=== PATIENT | male | born 1970 | race Caucasian/White ===

== ENCOUNTER 2021-04-30 10:24 | Emergency (ER) | payer OTHER, SELFPAY ==
--- NOTE | 2021-04-30 10:29 | ED.GENADULT ---
HPI - General Adult General Chief complaint: Ear Stated complaint: ear pain Time Seen by Provider: 04/30/21 10:29 Source: patient Mode of arrival: ambulatory Limitations: no limitations History of Present Illness HPI narrative: 50-year-old male patient presents to the [facility] with complaints of bilateral ear pain for the past 3 days. Patient states he has had a little bit of congestion. Patient states he gets this every once in a while. Patient states he has been taking Claritin. Patient is not vaccinated against Covid denies any fever, body aches or chills. Related Data Home Medications Medication Instructions Recorded Confirmed loratadine [Claritin] 10 mg PO DAILY 04/30/21 04/30/21 Allergies Allergy/AdvReac Type Severity Reaction Status Date / Time No Known Allergies Allergy Verified 04/30/21 10:31 Review of Systems Review of Systems: CONSTITUTIONAL: Denies fever, chills, or sweats. EYES: Denies visual changes, redness, or discharge. ENT: Denies rhinorrhea, positive congestion, denies sore throat, bilateral otalgia. CARDIOVASCULAR: Denies chest pain, palpitations, or edema. RESPIRATORY: Denies cough or dyspnea. GASTROINTESTINAL: Denies abdominal pain, nausea, vomiting, or diarrhea. GENITOURINARY: Denies dysuria or hematuria. SKIN: Denies rash or itching. MUSCULOSKELETAL: Denies back pain, joint pain, or myalgia. NEUROLOGIC: Denies headache, numbness, or weakness. PSYCHIATRIC: Denies anxiety or depression. [facility] Past Medical History Medical History (Updated 04/30/21 @ 10:51 by SHANNAN Pepper) Chronic ear infection Seasonal allergies Comments At the time of my signature I agree with nursing past medical history, surgical, social, and family history. There is no relevant family history pertinent to the presenting complaint. Exam Narrative: GENERAL: Well-appearing, well-nourished, and in no acute distress. HEAD: Normocephalic, atraumatic. EYES: PERRLA and EOMI. ENT: Nares clear, no rhinorrhea or epistaxis. Mucous membranes moist. Posterior pharynx with no erythema, tonsil enlargement, exudates or lesions present. There is fluid noted behind the left ear. There is some injection and erythema noted to the right ear. NECK: Supple. No lymphadenopathy CHEST: Clear to auscultation. No respiratory distress. HEART: Regular rate and rhythm. No murmur heard. Normal peripheral pulses. ABDOMEN: Soft, nontender, nondistended, normal active bowel sounds. EXTREMITIES: Normal range of motion. No edema. SKIN: Warm, dry, no rash. NEURO: No focal deficits. Alert and oriented x3. Course Vital Signs Vital signs: Vital Signs Temperature 36.6 C 04/30/21 10:33 Pulse Rate 81 04/30/21 10:33 Respiratory Rate 16 04/30/21 10:33 Blood Pressure 146/88 H 04/30/21 10:33 Pulse Oximetry 99 04/30/21 10:33 Temperature 36.6 C 04/30/21 10:33 Pulse Rate 81 04/30/21 10:33 Respiratory Rate 16 04/30/21 10:33 Blood Pressure 146/88 H 04/30/21 10:33 Pulse Oximetry 99 04/30/21 10:33 Vital signs reviewed The patient has been informed that they may have pre-hypertension or Hypertension based on a BP reading in the department. I recommend that the patient call the primary care provider listed on their discharge instructions or a physician of their choice this week to arrange follow up for further evaluation of possible pre-hypertension or Hypertension Medical Decision Making Differential Diagnosis Differential Diagnosis: Differential diagnosis: Otitis media, otitis externa, perforated TM, infection of the outer ear, foreign body or cerumen impaction, ruptured TM, acute mastoiditis, ligament otitis externa, dehydration, pneumonia, sepsis, dental or intraoral infection, TMJ dysfunction Discussed with patient it does appear that he has got a bilateral ear infection that we will go ahead and treat with antibiotics today. We will also discharge him home with a nasal steroid and can continue to take his ov
[2021-04-30 10:33] VITALS: BP 146/88; PULSE 81; RESP 16; TEMP 36.6; O2SAT 99
== END 2021-04-30 10:54 | disposition home or self-care (01) ==
PROVIDERS: Emergency Provider Nurse Practitioner Family; PCP Family Medicine
DX: H73.92 Unspecified disorder of tympanic membrane, left ear (principal); H66.91 Otitis media, unspecified, right ear
CPT/HCPCS: 99213; G0463

== ENCOUNTER 2023-07-05 10:32 | Outpatient (CLI) | payer OTHER, SELFPAY ==
--- NOTE | ~2023-07-05 | CT_ITS ---
EXAMINATION: CT pelvis w con DATE: 07/05/2023 11:06 INDICATION: Nonhealing surgical wound of right groin. TECHNIQUE: Computed tomography (CT) of the pelvis was performed with 100 mL Omnipaque 350 intravenous contrast. Automated exposure control and iterative reconstruction technique were employed. The dose- length product was 563.79 mGy-cm. COMPARISON: None FINDINGS: There are no dilated loops of bowel. There are no pathologically enlarged lymph nodes. Ther e is no free intraperitoneal fluid. There is a tract from the skin to the right inguinal canal. There is retraction of the skin in this area. No fluid collection. There is mild osteoarthritis of the hip s. IMPRESSION: 1. Tract from the skin to the right inguinal canal with retraction of the skin, likely scarring. Reviewed, dictated and finalized at location A. [facility]IST
== END 2023-07-05 10:33 ==
PROVIDERS: PCP Surgery; Visit Provider Surgery
DX: T81.89XA Other complications of procedures, not elsewhere classified, initial encounter (principal)
CPT/HCPCS: 72193; Q9967

== ENCOUNTER 2024-07-18 14:44 | Emergency (ER) | payer OTHER, SELFPAY ==
[2024-07-18 15:32] VITALS: BP 165/102; PULSE 90; RESP 17; TEMP 36.6; O2SAT 97
--- NOTE | 2024-07-18 15:40 | ED.MALEGU ---
HPI - Male Genitourinary General Chief complaint: Urogenital-Male Stated complaint: Swollen Penis Time Seen by Provider: 07/18/24 15:32 Source: patient and RN notes reviewed Mode of arrival: ambulatory Limitations: no limitations History of Present Illness HPI Narrative: Patient presents today with a one-week history of and redness, swelling, and itching at the tip of the penis. It has not been progressively worsening. No discharge. No concerns for sexually transmitted infections. He has tried some Neosporin and hydrocortisone without relief. Related Data Home Medications ?Medication ?Instructions ?Recorded ?Confirmed ?Last Taken ?Type No Home Medications 07/18/24 07/18/24 Unknown History Allergies Allergy/AdvReac Type Severity Reaction Status Date / Time No Known Allergies Allergy Verified 07/18/24 15:43 Review of Systems Review of Systems: CONSTITUTIONAL: Denies body aches, fever, chills, or sweats. EYES: Denies visual changes, redness, or discharge. ENT: Denies rhinorrhea, congestion, sore throat, or otalgia. CARDIOVASCULAR: Denies chest pain, palpitations, or edema. RESPIRATORY: Denies cough or dyspnea. GASTROINTESTINAL: Denies abdominal pain, nausea, vomiting, or diarrhea. GENITOURINARY: + redness, itching, swelling of penis SKIN: Denies rash, itching, or wounds. MUSCULOSKELETAL: Denies back pain, joint pain, or myalgia. NEUROLOGIC: Denies headache, numbness, tingling, or weakness. PSYCH: Denies depression or anxiety. [facility] Past Medical History Medical History Chronic ear infection Seasonal allergies Surgical History Surgical History History of hernia repair Right inguinal hernia repair History of tonsillectomy Family History Family History Father Melanoma Other Diabetes mellitus Hypertension Social History Social History Smoking status: Former smoker Tobacco type: cigarettes Smokeless tobacco user: chewing tobacco Alcohol intake: never Occupation/Education: occupation Additional occupation/education comments: refinery worker Comments At time of signature, I have reviewed and agree with nursing past medical, surgical, social and family history unless otherwise noted. Please see nursing chart for further information. There is no relevant family history pertinent to the presenting complaint Exam Narrative: GENERAL: Well-appearing, well-nourished, and in no acute distress. HEAD: Normocephalic, atraumatic. EYES: EOMI. No redness or drainage. Conjunctivae normal. ENT: Mucous membranes pink and moist. NECK: Normal AROM. CHEST: No respiratory distress. :Uncircumcised male. Erythema and irritation to area just proximal to the head of the penis. EXTREMITIES: Normal range of motion. No edema. SKIN: Warm, dry, no rash. Capillary refill normal. Normal skin turgor. NEURO: No focal deficits. Alert and oriented x3. Gait steady. PSYCH: Normal affect. No signs of depression or anxiety. Course Course Level of Care: Express Care Visit Vital Signs Vital signs: Vital Signs Temperature 97.9 F 07/18/24 15:32 Pulse Rate 90 07/18/24 15:32 Respiratory Rate 17 07/18/24 15:32 Blood Pressure 165/102 H 07/18/24 15:32 Pulse Oximetry 97 07/18/24 15:32 Temperature 97.9 F 07/18/24 15:32 Pulse Rate 90 07/18/24 15:32 Respiratory Rate 17 07/18/24 15:32 Blood Pressure 165/102 H 07/18/24 15:32 Pulse Oximetry 97 07/18/24 15:32 Reviewed MDM - Male Genitourinary MDM Narrative Medical decision making narrative: Patient has some irritation just below the head of the penis that is consistent with mild balanitis. Will treat with topical clotrimazole. Recommend PCP follow-up in 1-2 weeks if symptoms persist. Anticipatory guidance given. Differential Diagnosis Differential diagnosis: Likely other (Tinea, balanitis, phimosis, paraphimosis) Critical Care Time Critical Care Time Critical Care Time: No Discharge Plan Discharge Clinical Impression: Balanitis Patient Disposition: Home, Self-Care Condition: Stable Instructions: Balanitis (ED) Additional Instructions: Please use some [id number] clotrimazole cream (Lotrimin) in the reddened area twice a day for 1-2 weeks. If after 1 week you do not feel symptoms are improving, please follow-up with your PCP. If symptoms worsen, please follow-up sooner. Your blood pressure was elevated above 120/80 today at Urgent Care. This puts you above the threshold for follow up. Please schedule a followup visit with your personal physician as soon as possible, for further evaluation and treatment. Even blood pressure exceeding 120/80 may indicate pre-hypertension. Patient Language: Divehi Prescriptions: No Action loratadine [Claritin] 10 mg Tablet 10 mg PO DAILY fluticasone propionate [Flonase Allergy Relief] 50 mcg/actuation spray,suspension 2 spray NASAL BID Qty: 15.8 0RF Rx Instructions: administer into each nostril Follow-up/Referrals: UNKNOWN,DOCTOR [Primary Care Provider] - Time of Disposition: 15:48
== END 2024-07-18 15:52 | disposition home or self-care (01) ==
PROVIDERS: Emergency Provider Nurse Practitioner
DX: N48.1 Balanitis (principal); F17.220 Nicotine dependence, chewing tobacco, uncomplicated
CPT/HCPCS: 99211; G0463

== ENCOUNTER 2025-02-02 17:06 | Emergency (ER) | payer OTHER, SELFPAY ==
[2025-02-02 17:14] VITALS: BP 142/89; PULSE 77; RESP 16; TEMP 36.6; O2SAT 98
--- NOTE | 2025-02-02 17:22 | ED_ITS ---
HPI - Male Genitourinary General Chief complaint: Urogenital-Male Stated complaint: Scrotum issue Time Seen by Provider: 02/02/25 17:40 Source: patient and RN notes reviewed Mode of arrival: ambulatory Limitations: no limitations History of Present Illness HPI Narrative: 54-year-old male presents with concern for rash to his penis. Reports he was seen 6 months ago here and diagnosed with balanitis and was told use Lotrimin cream. Reports that made it worse. Patient is circumcised. He denies any concern for STDs. He denies any dysuria, frequency, urgency. Reports skin is becoming brought any now has 2 bumps on the head of his penis. He reports the area has not spread otherwise. MD Complaint: other (skin irritation) Related Data Allergies Allergy/AdvReac Type Severity Reaction Status Date / Time No Known Allergies Allergy Verified 02/02/25 17:20 Review of Systems Review of Systems: CONSTITUTIONAL: Denies malaise, chills, sweats, or fever. EYES: Denies redness, or discharge. ENT: Denies rhinorrhea, congestion, swollen lips, swollen tongue CARDIOVASCULAR: Denies chest pain, palpitations, or edema. RESPIRATORY: Denies cough or dyspnea. GASTROINTESTINAL: Denies abdominal pain, nausea, vomiting SKIN: Reports irritated skin on the shaft of his penis MUSCULOSKELETAL: Denies joint pain or myalgia. NEUROLOGIC: Denies headache. All systems reviewed & are unremarkable except as noted in HPI and below PMFSH Past Medical History Medical History Chronic ear infection Seasonal allergies Surgical History Surgical History History of hernia repair Right inguinal hernia repair History of tonsillectomy Family History Family History Father Melanoma Other Diabetes mellitus Hypertension Social History Social History Smoking status: Former smoker Tobacco type: cigarettes Smokeless tobacco user: chewing tobacco Alcohol intake: never Occupation/Education: occupation Additional occupation/education comments: [email or web address] worker Comments At time of signature, agree with nursing past medical, surgical, social and family history. There is no relevant family history pertinent to the presenting complaint Exam Narrative: GENERAL: Well-appearing, well-nourished, and in no acute distress. HEAD: Normocephalic, atraumatic. EYES: PERRLA, conjunctivae clear, and EOMI. ENT: Mucous membranes moist. Oropharynx without edema, erythema or lesions. NECK: Supple. No lymphadenopathy CHEST: Clear to auscultation. No respiratory distress. HEART: Regular rate and rhythm. SKIN: Warm, dry. Erythematous and slightly excoriated skin noted to the coronal sulcus circumferentially, two skin colored papules noted to the head of the penis NEURO: Alert and oriented x3. PSYCH: Normal mood and affect Course Course Emergency Course: Patient is aware of diagnosis, understands and agrees to treatment plan. Anticipatory guidance given. Patient agrees to follow-up as directed and is aware of reasons to seek care at the emergency department. Portions of this record may have been created with voice recognition software Level of Care: Express Care Visit Vital Signs Vital signs: Vital Signs Temperature 97.9 F 02/02/25 17:14 Pulse Rate 77 02/02/25 17:14 Respiratory Rate 16 02/02/25 17:14 Blood Pressure 142/89 H 02/02/25 17:14 Pulse Oximetry 98 02/02/25 17:14 Temperature 97.9 F 02/02/25 17:14 Pulse Rate 77 02/02/25 17:14 Respiratory Rate 16 02/02/25 17:14 Blood Pressure 142/89 H 02/02/25 17:14 Pulse Oximetry 98 02/02/25 17:14 Reviewed. MDM - Male Genitourinary MDM Narrative Medical decision making narrative: Contact dermatitis, allergic dermatitis, simple balanitis, benign papules, psoriasis Critical Care Time Critical Care Time Critical Care Time: No Discharge Plan Discharge Clinical Impression: Dermatitis Patient Disposition: Home Condition: Stable Instructions: Dermatitis (ED) Additional Instructions: Wash the area with gentle soap and water only. Avoid any irritating bath or skin care products Use skin cream as prescribed Avoid scratching when possible to prevent worsening of the condition and disruption of the skin that could lead to bacterial infection To relieve itching, place a cool washcloth or some ice over the area that itches, rather than scratching Follow up with primary care provider if her symptoms do not improve in 7 days. Patient Language: Citizen [place] Prescriptions: New triamcinolone acetonide 0.05 % ointment 1 applic topical BID 7 Days Qty: 15 0RF Follow-up/Referrals: UNKNOWN,DOCTOR [Primary Care Provider] - Time of Disposition: 17:54
== END 2025-02-02 17:56 | disposition home or self-care (01) ==
PROVIDERS: Emergency Provider Nurse Practitioner
DX: N48.89 Other specified disorders of penis (principal); L30.9 Dermatitis, unspecified; F17.220 Nicotine dependence, chewing tobacco, uncomplicated
CPT/HCPCS: 99213; G0463

== ENCOUNTER 2025-06-30 08:06 | Outpatient (CLI) | payer OTHER, SELFPAY ==
--- NOTE | ~2025-06-30 | XR_ITS ---
XR chest 2V 06/30/2025 08:32 Indication: Dyspnea Procedure: 2 view chest Comparison: No prior studies for comparison. Findings: There is left lower lobe airspace disease which may represent atelectasis or developing pneumonia. Heart size normal. Right lung clear. No pleural effusion or pneumothorax. Impression: 1: Left lower lobe airspace disease may represent atelectasis or developing pneumonia. Reviewed, dictated and finalized at location C. GENCY MEDICINE SPECIALIST Impression: 1: Left lower lobe airspace disease may represent atelectasis or developing pne umonia.
--- NOTE | ~2025-06-30 | XR_ITS ---
LEFT XR nasal bones min 3V Indication: R09.81 - Nasal congestion Comparison: None Technique: 3 view. Findings: No acute fracture or malalignment. No significant degenerative changes. Soft tissues are unremarkable. Impression: No acute fracture or malalignment. Reviewed, dictated and finalized at location P. PENS ASSEMBLER Impression: No acute fracture or malalignment.
--- OUTSIDE RECORDS SUMMARY | 2025-06-30 08:10 | XMS_ITS | Clinical Summary ---
Author Organization [facility] Healthcare Address [address] [place] [address] Care Team Providers Care Cooling Tower Technician Name Role Phone No, Physician Unavailable Jessica Callahan NP Primary Care Provider [phone] Allergies No known active allergies Medications fluticasone (FLONASE) 50 mcg/actuation nasal spray Administer 2 sprays into each nostril daily. 16 g 5 8 Active loratadine (CLARITIN) 10 mg tablet Take 1 tablet (10 mg total) by mouth daily Active Active Problems Problem Noted Date Diagnosed Date Acute right flank pain 12/22/2020 Acute recurrent maxillary sinusitis 11/19/2017 Assessment & Plan (11/19/2017 4:34 PM CDT): Complete antibiotics and other meds as prescribed Take OTC decongestants for congestion- Sudafed/Mucinex Motrin/Tylenol for pain/fever If you have high blood pressure or any kidney disease use Tylenol only. Take an Antihistamines like Zyrtec or Claritin or Galilea daily at bedtime for the next 2-3 weeks. Can take Benadryl at bedtime for the next 3-4 days for immediate relief of runny nose and may help with sinus headache. Try saline nasal spray irrigations 2-4 times a day or try using Annette pot as directed daily then use your Flonase or other corticosteroid nasal spray every day to decrease the swelling and inflammation in your nasal cavities. Drink plenty of water & get plenty of rest A humidifier may also help with congestion Follow up with your PCP in 3-5 days if you are not getting better Acute suppurative otitis med ia of both ears without spontaneous rupture of tympanic membranes 11/19/2017 Assessment & Plan (11/19/2017 4:33 PM CDT): You can take Tylenol/Motrin for pain/fever Complete antibiotics as directed If you were prescribed ear drops- they contain a steroid & will help reduce redness, swelling, pain in the ear You can use warm moist heat to decrease pain Follow up w PCP if you are not getting better in 3 days For children, you may want to have the ear rechecked after 10 days. Immunizations Immunization Administration Dates Next Due Influenza, Unspecified 06/26/2023(Deferr ed: Patient Refused),05/15/2023(Deferred: Patient Refused) Surgical History Surgery Date Site/Laterality Comments INGUINAL HERNIA REPAIR TONSILLECTOMY WISDOM TOOTH EXTRACTION Social History Tobacco Use Types Packs/Day Years Used Date Smoking Tobacco: Never Smokeless Tobacco: Former Chew Quit: 2019 Tobacco Cessation:Counseling Given: Not Answered PHQ-2 Answer Date Recorded PHQ-2 Total Score (If total score is 3 or more points, staff should administer the PHQ-9) 0 05/08/2024 Sex and Gender Information Value Date Recorded Sex Assigned at Not on file 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 Gender Identity Not on file Sexual Orientation Not on file Last Filed Vital Signs Vital Sign Reading Time Taken Comments Blood Pressure 112/78 05/08/2024 1:38 PM CDT Pulse 83 05/08/2024 1:38 PM CDT Temperature 36.1 C (96.9 F) 05/08/2024 1:38 PM CDT Respiratory Rate 22 03/23/2023 5:29 PM CDT Oxygen Saturation 96% 05/08/2024 1:38 PM CDT Inhaled Oxygen Concentration - - Weight 97.9 kg (215 lb 14.4 oz) 05/08/2024 1:38 PM CDT Height 175.3 cm (5' 9) 05/08/2024 1:38 PM CDT Body Mass Index 31.88 05/08/2024 1:38 PM CDT Plan of Treatment Health Maintenance Due Date Last Done Comments Colon Cancer Screening-Colonoscopy 1970 DTaP/Tdap/Td Vaccine (1 - Tdap) 1981 Zoster Vaccine (1 of 2) 2020 Influenza Vaccine (#1) 2025 Depression Screening 05/08/2025 05/08/2024, 11/19/2017, 11/19/2017 Regular Well Visit/Exam 18-64 05/08/2025 05/08/2024 Prostate Cancer Screening-PSA 05/09/2026 05/09/2024 Hepatitis B Screening Completed 05/09/2024 Hepatitis C Screening Completed 05/09/2024 Pneumococcal vaccine <65 Aged Out No longer eligible based on patient's age to complete this topic Procedures Procedure Name Priority Date/Time Associated Diagnosis Comments HEPATITIS C ANTIBODY Routine 05/09/2024 8:37 AM CDT Encounter for hepatitis C screening test for low risk patient PSA SCREEN Routine 05/09/2024 8:37 AM CDT Screening PSA (prostate specific antigen) from Last 3 Months or Most Recently Relevant to Health Maintenance Results * PSA screen (05/09/2024 8:37 AM CDT) PSA-Total 0.49 <=3.90 ng/mL Comment: Interpretive Data AGE SEX REFERENCE INTERVAL 0 minutes-150 years Female None 0 minutes-49 years Male None 50-59 years Male 0-3.90 60-69 years Male 0-5.40 70-79 years Male 0-6.20 80-150 years Male 0-6.20 The [employer] PSA Total assay procedure was used. Results from different manufacturers or methods may not be comparable. Serial testing should be performed using the same method. Current interpretive data last revised 21. Blood 05/09/2024 8:37 AM CDT 05/09/2024 8:57 AM CDT us Jessica Callahan NP LAB BLOOD ORDERABLES Felipa manuel Result [facility] [place] [facility] [place] [address] * Hepatitis C antibody Blood (05/09/2024 8:37 AM CDT) Hep C Ab Nonreactive Nonreactive Comment: Interpretive Data Nonreactive: Antibodies to HCV not detected. Does NOT exclude the possibility of recent exposure to HCV. Equivocal: Equivocal for HCV antibodies. Supplemental molecular testing will be automatically performed to determine infection status in accordance with current CDC screening recommendations. Reactive: Positive for HCV antibodies. This may represent current or past HCV infection. Supplemental molecular testing will be automatically performed to determine current infection status in accordance with current CDC screening recommendations. Interpretive data was last revised on 2019. Testing performed by: [facility], [address] [place] [address]., [id number] Blood 05/09/2024 8:37 AM CDT 05/09/2024 1:26 PM CDT Jessica Callahan NP LAB MICROBIOLOGY - GENERA L ORDERABLES Final Result Performing Organization Address City/State/[facility] Co de Phone Number [facility] ([place]) [facility] [place] [address] from Last 3 Months or Most Recently Relevant to Health Maintenance Insurance [employer] ACCESS [employer] OPEN ACCESS Care Teams Cooling Tower Technician Relationship Specialty Start Date End Date Jessica Callahan NP PCP - General Infectious Diseases 05/12/24 No, Physician 08/13/18
--- OUTSIDE RECORDS SUMMARY | 2025-06-30 08:10 | XMS_ITS | Data Portability ---
Author Organization [place] - [facility] [email or web address], Main Office Address [address] [place] [address] Assessment No assessment recorded. Plan of Treatment Reminders Order Date Submit Date Provider Last Modified By Organization Details Last Modified Time Details Appointments None recorded. Lab testosteron e, total, serum 2022 023 [employer] [facility], [address], [place], [address], 3 02:42:08 CMP, serum or plasma 2022 023 [employer] [facility], [address], [place], [address], 3 02:42:07 lipid panel, serum 2022 023 [employer] [facility], [address], [place], [address], 3 02:42:05 PSA, serum or plasma 2022 023 [employer] [facility], [address], [place], [address], 3 02:42:09 culture, wound 2022 023 [facility] ([facility]), [address] [place], [address], 3 14:53:16 Referral general surgeon referral 2022 023 RADHA Neff MD, [address] [facility] [address],, [place], [address], 3 13:01:16 Procedures None recorded. Surgeries None recorded. Imaging home sleep study 2022 023 [email or web address] 256 [facility], [address] [facility], [place], [address], 3 09:16:22 home sleep study - *Please call pt to schedule* 2022 023 [email or web address] [facility] ([facility]), [address], [place], [address], 3 11:37:31 Medication Orders sildenafil 100 mg tablet 2022 023 [facility] [address], [address], [place], [address], 3 17:26:10 omeprazole 40 mg capsule,del ayed release 2022 023 [facility], [address], [place], [id number], 3 14:51:51 sildenafil 100 mg tablet 2022 023 [id number], [address], [place], [phone], 3 14:51:51 Patient TargetsNo targets recorded. Patient InstructionsNo instructions recorded. Reason for Referral General Surgeon Referral for Open wound Referring Physician: Radha Mcneill, Family Medicine, Encounter Date: 06/13/2023 Results Created Date Observation Date Name Description Value Unit Range Abnormal Flag Note LastModifiedBy Organization Detail LastModifiedTime 04/18/20 23 04/18/2023 CULTU RE WOUND /TISS UE+GR .STAI N [email or web address] ===== ===== ===== ===== ===== ===== ===== ===== ===== ===== ===== ===== ===== ===== ===== ===== ===== ===== ===== ===== ===== ===== ===== ===== CULTU RE NO.: [id number] Exam Statu s: Final Exam Type: CULTU RE WOUND /TISS UE+ ===== ===== ===== ===== ===== ===== ===== ===== ===== ===== ===== ===== ===== ===== ===== ===== ===== ===== ===== ===== ===== ===== ===== ===== Cultu re Repor t: Organ ism #01 Staph yloco ccus aureu s (staa ur) Antib iotic s staau r Achie vable Achie vable (01) Dosag e Serum Level Urine Level mcg/m l mcg/m l Beta- Lacta ellen POS + 021A Cefox itin Scree n NEG - 021A Cipro floxa jessie <=0.5 S 021A Clind amyci n <=0.1 2 S 021A Dapto mycin 0.25 S 021A Doxyc yclin e <=0.5 S 021A Eryth romyc in <=0.2 5 S 021A Genta micin <=0.5 S 021A Induc ible Clind amyci NEG - 021A Levof loxac in <=0.1 2 S 021A Linez olid 2 S 021A Oxaci llin <=0.2 5 S 021A Rifam pin <=0.5 S 021A Tetra cycli ne <=1 S 021A Trmet hopri m.Sul fa <=10 S 021A Vanco mycin 1 S 021A rt - Test Card Code AST-G P 021A o2 - Final Organ ism STAPH Y 021A af - Antib iotic Fami MACRO L 021A af - Antib iotic Famil y Na ap - Pheno type Name RESIS T 021A ap - Pheno type Name Not Available [facility] (Lab) [address] [place], [address], 04/21/2023 07:39:18 04/25/2004/26/2023 LIPID PANEL , STAND CHRISTEN cholesterol, total 238 mg/dL <200 high Not Available [facility] [address] [address] [place], [address], 04/26/2023 02:42:05 04/25/20 23 04/26/2023 LIPID PANEL , STAND CHRISTEN HDL cholesterol 32 mg/dL > or = 40 low Not Available [facility] [address] [place], [address], 04/26/2023 02:42:05 04/25/20 23 04/26/2023 LIPID PANEL , STAND CHRISTEN triglyceride s 420 mg/dL <150 high If a non-f astin g speci men was colle cted, consi ximena repea t trigl yceri de testi ng on a fasti ng speci men if clini vasu indic ated. Erich east et al. J. of Clin. Lipid ol. 2015; 9:129 -169. Not Available [facility] [address] [place], [address], 04/26/2023 02:42:05 04/25/20 23 04/26/2023 LIPID PANEL , STAND CHRISTEN LDL-choleste rol mg/dL _(joanne c) LDL rubio stero l not calcu lated . Trigl yceri de level s great er than 400 mg/dL inval idate calcu lated LDL resul ts. Refer ence range : <100 Norm able range <100 mg/dL for prima ry preve ntion ; <70 mg/dL for patie nts with CHD or diabe tic patie nts with > or = 2 CHD risk facto rs. LDL-C is now calcu lated using the Olesya n-Hop kins calcu vicente n, which is a valid ated novel kev thorpe than the Fried semaj equat ion in the estim ation of LDL-C . Olesya monroe SS et al. BOSTON. 2013; 310(1 9): 2061- 2068 (http ://ed ucati on.Qu estAdorStyle. com/f aq/FA Q164) Not Available [address] [address] [place], [address], 04/26/2023 02:42:05 04/25/2004/26/2023 LIPID PANEL , STAND CHRISTEN chol/HDLC ratio 7.4 (calc ) <5.0 high Not Available [address] [address] [place], [address], 04/26/2023 02:42:05 04/25/20 23 04/26/2023 LIPID PANEL , STAND CHRISTEN non HDL cholesterol 206 mg/dL _(joanne c) <130 high For patie nts with diabe adalberto plus 1 major ASCVD risk facto r, treat ing to a non-H DL-C goal of <100 mg/dL (LDL- C of <70 mg/dL ) is consi flip richardson optio n. Not Available [address] [address] [place], [address], 04/26/2023 02:42:05 04/25/20 23 04/26/2023 COMPR EHENS ANAI METAB OLIC PANEL glucose 97 mg/dL 65-99 normal Fasti ng refer ence inter joelle Not Available [facility] [address] [address] [place], [address], 04/26/2023 02:42:07 04/25/2004/26/2023 COMPR EHENS ANAI METAB OLIC PANEL urea nitrogen (BUN) 17 mg/dL 7-25 normal Not Available [facility] [address] [address] [place], [address], 04/26/2023 02:42:07 04/25/20 23 04/26/2023 COMPR EHENS ANAI METAB OLIC PANEL creatinine 1.05 mg/dL 0.70-1 .30 normal Not Available [address], [address], 04/26/2023 02:42:07 04/25/20 23 04/26/2023 COMPR EHENS ANAI METAB OLIC PANEL eGFR 85 mL/mi n/1.7 3m2 > or = 60 normal Not Available [address], [address], 04/26/2023 02:42:07 04/25/20 23 04/26/2023 COMPR EHENS ANAI METAB OLIC PANEL BUN/creatini ne ratio SEE NOTE: (calc ) 6-22 Not Repor arcadio: BUN and Creat inine are withi n refer ence range . Not Available [address], [address], 04/26/2023 02:42:07 04/25/20 23 04/26/2023 COMPR EHENS ANAI METAB OLIC PANEL sodium 138 mmol/ L 135-14 6 normal Not Available [address], [address], 04/26/2023 02:42:07 04/25/20 23 04/26/2023 COMPR EHENS ANAI METAB OLIC PANEL potassium 4.3 mmol/ L 3.5-5. 3 normal Not Available [address], [address], 04/26/2023 02:42:07 04/25/20 23 04/26/2023 COMPR EHENS ANAI METAB OLIC PANEL chloride 101 mmol/ L 98-110 normal Not Available [address], [address], 04/26/2023 02:42:07 04/25/20 23 04/26/2023 COMPR EHENS ANAI METAB OLIC PANEL carbon dioxide 31 mmol/ L 20-32 normal Not Available [address], [address], 04/26/2023 02:42:07 04/25/20 23 04/26/2023 COMPR EHENS ANAI METAB OLIC PANEL calcium 9.2 mg/dL 8.6-10 .3 normal Not Available [address], [address], 04/26/2023 02:42:07 04/25/20 23 04/26/2023 COMPR EHENS ANAI METAB OLIC PANEL protein, total 7.4 g/dL 6.1-8. 1 normal Not Available [address], [address], 04/26/2023 02:42:07 04/25/20 23 04/26/2023 COMPR EHENS ANAI METAB OLIC PANEL albumin 4.2 g/dL 3.6-5. 1 normal Not Available [address], [address], 04/26/2023 02:42:07 04/25/20 23 04/26/2023 COMPR EHENS ANAI METAB OLIC PANEL globulin 3.2 g/dL_ (calc ) 1.9-3. 7 normal Not Available [address], [address], 04/26/2023 02:42:07 04/25/20 23 04/26/2023 COMPR EHENS ANAI METAB OLIC PANEL albumin/glob ulin ratio 1.3 (calc ) 1.0-2. 5 normal Not Available [address], [address], 04/26/2023 02:42:07 04/25/20 23 04/26/2023 COMPR EHENS ANAI METAB OLIC PANEL bilirubin, total 0.5 mg/dL 0.2-1. 2 normal Not Available [address] [address] [place], [address], 04/26/2023 02:42:07 04/25/20 23 04/26/2023 COMPR EHENS ANAI METAB OLIC PANEL alkaline phosphatase 86 U/L 35-144 normal Not Available [facility] [address] [address] [place], [address], 04/26/2023 02:42:07 04/25/20 23 04/26/2023 COMPR EHENS ANAI METAB OLIC PANEL AST 19 U/L 10-35 normal Not Available [address], [address], 04/26/2023 02:42:07 04/25/20 23 04/26/2023 COMPR EHENS ANAI METAB OLIC PANEL ALT 21 U/L 9-46 normal Not Available [address] [place], [address], 04/26/2023 02:42:07 04/25/20 23 04/26/2023 TESTO STERO NE, TOTAL , MALES (ADUL T), IA testosterone , total, males (adult), ia 349 NG/dL 250-82 7 normal Not Available [address], [address], 04/26/2023 02:42:08 04/25/20 23 04/26/2023 PSA, TOTAL PSA, total 1.84 NG/mL < or = 4.00 normal The total PSA value from this assay syste m is stand ardiz ed again st the WHO stand christen. The test resul t will be appro ximat cristina 20% lower when geovanni red to the equim olar- stand ardiz ed total PSA (Fowler man Coult er). Geovanni rison of seria l PSA resul ts shoul d be inter prete d with this fact in mind. This test was perfo rmed using the [employer] chemi lumin escen t metho d. Value s obtai charley from diffe rent assay metho ds canno t be used inter shin eably . PSA level s, regar dless of value , shoul d not be inter prete d as absol red cliff evide nce of the prese nce or absen ce of disea se. Not Available Mayi [facility] [address], [place], [address], 04/26/2023 02:42:09 Result Notes None recorded. Problems Name Problem SNOMED Code Status Onset Date Resolution Date Notes Provider Name and Address Organization Details Recorded Time Hypercholester olemia 69710275 Active 2022 Kathy mccarthy, [employer] SEC[employer] ARCHITECT null, [employer] 14:32:28 Open wound 768313983 Active 2022 Radha Mcneill MD [address], [address], [place], [address], [employer] 3 14:46:29 Sleep disorder 14348956 Active 2022 Radha Mcneill MD [address], [address], [place], [address], [employer] 3 14:47:09 Acid reflux 524053986 Active 2022 Radha Mcneill MD [address], [address], [place], [address], [employer] 3 14:47:35 Hyperlipidemia 39982690 Active 2022 Radha Mcneill MD [address], [address], [place], [address], [employer] 3 14:48:26 Erectile dysfunction 458028758 Active 2022 Radha Mcneill MD [address], [address], [place], [address], [employer] 3 14:50:04 Problem Notes None recorded. Medical Equipment None Reported. Allergies No known drug allergies Medications Name Sig Start Date Stop Date Status Note LastModified by Organization Details LastModified Time valacyclovir 1 gram tablet active Not Available Not Available Not Available ciprofloxaci n 500 mg tablet TAKE 1 TABLET BY MOUTH EVERY 12 HOURS active Not Available Not Available No t Available omeprazole 40 mg capsule,myrtle yed release TAKE 1 CAPSULE BY MOUTH EVERY DAY active Not Available Not Available No t Available sildenafil 100 mg tablet TAKE 1 TABLET BY MOUTH ONCE DAILY NEEDED active Not Available Not Available No t Available amoxicillin 875 mg-potassium clavulanate 125 mg tablet TAKE 1 TABLET BY MOUTH TWICE DAILY FOR 10 DAYS 04/25 completed Not Available Not Available Not Available Vitals Date Recorded Body height Body mass index (BMI) Body weight Body temperature Heart rate Oxygen saturation Systolic And Diastolic Provider Name and Address Organization Details Last Updated DateTime 3 175.26 cm 32.2 kg/m2 18629.1 4 g 97.6 [degF] 92 /min 97 % 118/72 mm[Hg] Kathy mccarthy CMA [facility] [employer] 3 14:28:55 Date Recorded Body height Body mass index (BMI) Body weight Body temperature Heart rate Oxygen saturation Systolic And Diastolic Provider Name and Address Organization Details Last Updated DateTime 3 175.26 cm 32.4 kg/m2 87889.8 3 g 97.7 [degF] 74 /min 97 % 136/88 mm[Hg] Solange Savage MA [facility] [email or web address] 3 17:11:12 Social History Question Answer Notes LastModified by Organizat ion Details LastModified Time Tobacco Smoking Status Former Smoker Kathy Love CMA [place], [place] [employer] [facility] [email or web address] 04/18/2023 14:31:48 What Is Your Level Of Caffeine Consumption? Heavy [email or web address] Information not available 04/18/2023 What Type Of Diet Are You Following? REGULAR [email or web address] Information not available 04/18/2023 When Did You Quit Smoking? 6-10yearssin celastcigare tte [email or web address] Information not available 04/18/2023 What Is Your Relationship Status? [email or web address] Information not available 04/18/2023 Do You Have Any Dietary Restrictions? No [email or web address] Information not available 04/18/2023 Sex: Male Functional Status Question Answer Note LastModified by Organization D etails LastModified Time What is your level of alcohol consumption? None [email or web address] Information not available 04/18/2023 Mental Status None recorded. Family History Relationship Description Onset Age of this Age Resolved Age Notes LastModified by Organization Details LastModified Time Father Family history of malignant neoplasm [email or web address] Not available 14:30:21 Maternal Grandfather Diabetes mellitus [email or web address] Not available 14:30:48 Medical History No medical history recorded. Past Encounters Encounter ID Performer Location Encounter Start Date Encounter Closed Date Diagnosis/Indication Diagnosis SNOMED-CT Code Diagnosis ICD10 Code Diagnosis IMO Codes Diagnosis Note [id number] Radha Mcneill MD [facility] [address] [facility] [place] [address] 04/18/2023 14:15:52 04/18/2023 15:00:07 Open wound 765112067 T14.8XXA May need to see surgeon Sleep disorder 44224147 G47.9 Acid reflux 300451134 K2 1.9 Hyperlipidemia 53542711 E78.5 Erectile dysfunction 860 042777 F52.21 Screening for malignant neoplasm of prostate 781805402 Z12.5 [id number] Radha Mcneill MD [facility] [address] [facility] [place] [address] 06/13/2023 16:45:37 06/14/2023 09:04:17 Open wound 333942067 T14.8XXA May need to see surgeon for repair of this could be a retained stitch Sleep disorder 69537794 G47.9 Resend order for home sleep study Hyperlipidemia 78312718 E78.5 Diet exercise and TLC. Pt wants to wait on statins Erectile dysfunction 860 262897 F52.21 Health Concerns Section Related Observation LastModified by Organization Detai ls LastModified Time None Recorded Concern Status LastModified by Organization Details LastModified Time None Recorded Advance Directives Directive None Recorded Payers Insurance Date Sequence Insurance Name Policy Number Policy David Covered Member ID David Member ID Guarantor Name 04/18/2023 1 [employer] Raoul Baum [id number] Raoul Sarika 11/25/2023 1 [employer] [id number] Raoul Sarika [id number] Raoul Oakesaudra 04/18/2023 1 [employer] Raoul Baum [id number] Raoul Baum Notes Date Note Type Note Provider Name and Address Organization Details Recorded Time 04/18/2023 text/html Here today as a new pt. to establish care. No pmhx.Not sleeping well and snores a lot. His sinuses are draining and gets acid reflux. Feels like never sleeps has fatigue throughout the day.Has a wound from hernia surgery it opens and closes and drains. The surgery was in 2006. It will get infected and not doing anything for this.Has some ED. Has not had BW done for a long time. Has a hx of high cholesterol. Needs BW ordered.Having ED and wants testosterone checked would like to try something for ED. Radha Mcneill MD [address], [address], [place], [address], [employer] 04/19/2023 06:42:24 06/13/2023 text/html Here today c/o wound on right groin. He has a small hole on right inguinal area that keeps draining and will not heal. It is tender at times and feels like something is poking him.He never heard from the sleep lab to set up home sleep study. He is needing sildenafil sent to [facility]'s to see if it is cheaper. Radha Mcneill MD [address], [address], [place], [address], [employer] 06/14/2023 05:53:30
[2025-06-30 09:07] LABS: Hematocrit 47.3 % (42.0-52.0); Hemoglobin 15.8 g/dL (14.0-18.0); Immature Granulocyte Percent A 0.2 % (0-0.5); Lymphocytes Absolute Auto 1.63 K/mm3 (0.9-3.2); Mean Corpuscular HGB Conc 33.4 g/dl (32-36); Mean Corpuscular Hemoglobin 28.7 pg (26-34); Mean Corpuscular Volume 85.8 fl (80-100); Nucleated Red Blood Cells Absolute Auto 0.000 K/mm3 (0.0-0.012); Nucleated Red Blood Cells Perc 0.0 % (0.0-0.2); Platelet Count Result 187 k/mm3 (150-375); Red Blood Count 5.51 M/mm3 (4.6-6.20); White Blood Count 6.5 K/mm3 (4.5-10.0)
[2025-06-30 12:06] LABS: Alanine Aminotransferase 37 U/L (6-50); Albumin Level 4.4 g/dL (3.5-5.1); Alkaline Phosphatase 100 U/L (38-126); Anion Gap 6 mmol/L (4-12); Aspartate Amino Transferase 37 U/L (17-59); Bilirubin,Total 0.5 mg/dL (0.2-1.3); Blood Urea Nitrogen 22 mg/dL (9-20); Calcium 9.3 mg/dL (8.4-10.2); Carbon Dioxide 30 mmol/L (22-30); Chloride 104 mmol/L (98-107); Cholesterol 275 mg/dL (0-200); Estimated Glomerular Filt Rate 57; Glucose 103 mg/dL (65-110); HDL Direct 37 mg/dL; Potassium 4.5 mmol/L (3.4-5.0); Sodium 140 mmol/L (137-145); Total Protein 8.1 g/dL (6.3-8.2); Triglycerides 315 mg/dL (<150)
[2025-06-30 12:36] LABS: Thyroid Stimulating Hormone 0.670 uIU/mL (0.465-4.680)
[2025-07-02 14:21] LABS: Prostate Specific Antigen 0.4 ng/mL (< OR = 4.0)
[2025-07-02 14:41] LABS: Vitamin B12 729.0 pg/mL (239-931)
[2025-07-03 16:07] LABS: Free Testosterone (Direct) 4.4 pg/mL (7.2-24.0)
== END 2025-06-30 08:07 | disposition home or self-care (01) ==
LOC: ANHLAB 08:08
PROVIDERS: PCP Family Medicine; Visit Provider Family Medicine
DX: E66.9 Obesity, unspecified (principal); Z00.00 Encounter for general adult medical examination without abnormal findings; R06.00 Dyspnea, unspecified; R53.83 Other fatigue; Z12.5 Encounter for screening for malignant neoplasm of prostate; R09.81 Nasal congestion; R91.8 Other nonspecific abnormal finding of lung field
CPT/HCPCS: 36415; 70160; 71046; 80053; 80061; 82306; 82607; 84153; 84402; 84403; 84443; 85025; G0103